=== PATIENT | male | born 1990 | race Caucasian/White ===

== ENCOUNTER 2020-01-10 00:34 | Inpatient (IN) ==
[2020-01-10 01:00] LABS: Bilirubin,Urine Negative (Negative); Blood,Urine Negative (Negative); Clarity,Urine Clear (Clear); Color,Urine Yellow (Yellow); Glucose,Urine (UA) Normal (Normal); Ketones,Urine Trace mg/dL (Negative); Leukocyte Esterase,Urine Negative (Negative); Nitrite,Urine Negative (Negative); PH,Urine 5.5 pH Units (5.0-8.0); Protein,Urine Negative (Neg-Trace); Specific Gravity,Urine > 1.030 (1.010-1.025); Urobilinogen,Urine Normal (Normal)
[2020-01-10 01:14] LABS: Amphetamine Screen,Urine Negative ng/mL (Cutoff=1000); Barbiturate Screen,Urine Negative ng/mL (Cutoff=200); Benzodiazepines Screen,Urine Negative ng/mL (Cutoff=200); Cannabinoid Screen,Urine Positive ng/mL (Cutoff = 50); Cocaine Screen,Urine Negative ng/mL (Cutoff= 300); Opiate Screen,Urine Negative ng/mL (Cutoff=300); Phencyclidine Screen,Urine Negative ng/mL (Cutoff=25)
[2020-01-10 01:32] LABS: Basophils % 0.3 %; Eosinophils # 0.1 K/mcL (0.0-0.6); Hematocrit 49.7 % (37.5-50.1); Hemoglobin 16.1 g/dL (12.9-16.9); Immature Granulocytes % 0.1 % (0-4); Lymphocytes # 6.2 K/mcL (0.6-4.6); Lymphocytes % 63.6 %; Mean Corpuscular HGB Conc 32.4 g/dL (31.6-35.5); Mean Corpuscular Hemoglobin 29.7 pg (28.0-33.3); Mean Corpuscular Volume 91.7 fL (83.0-100.0); Mean Platelet Volume 12.5 fL (9.4-12.4); Monocytes # 1.4 K/mcL (0.0-1.3); Monocytes % 14.4 %; Platelet Count 225 K/mcL (140-400); Red Blood Count 5.42 M/mcL (4.19-5.50); Red Cell Distribution Width 13.7 % (11.5-14.5); Segmented Neutrophils % 20.6 %; White Blood Count 9.7 K/mcL (4.3-11.1)
[2020-01-10 01:33] LABS: INR 2.5; Prothrombin Time 28.5 Seconds (9.4-12.1)
[2020-01-10] MEDS ORDERED: *HR* Warfarin 5 MG TABLET PO ONE (01:33)
[2020-01-10 01:36] LABS: Activated Partial Thrombo Time 57.2 Seconds (26.0-36.0)
[2020-01-10 01:37] LABS: Acetaminophen < 10 mcg/mL (10-20); BUN/Creatinine Ratio 12 (6-26); Blood Urea Nitrogen 12 mg/dL (6-20); Calcium 9.7 mg/dL (8.6-10.3); Carbon Dioxide 27 mEq/L (23-29); Chloride 101 mEq/L (98-107); Ethanol < 10 mg/dL (Less than 10); Glucose 104 mg/dL (70-105); Osmolality,Calculated 282 (280-300); Salicylate < 2.5 mg/dL (15.0-30.0); Sodium 136 mEq/L (136-145); eGFR For African Americans > 60 (> 60); eGFR For Non-African Americans > 60 (> 60)
[2020-01-10 01:53] LABS: Platelet Estimate Normal (Normal)
[2020-01-10] MEDS ORDERED: traZODone 50 MG TABLET PO PRN (03:19)
[2020-01-10] MEDS ORDERED: *HR* LORazepam 1 MG TABLET PO PRN (03:19)
[2020-01-10] MEDS ORDERED: Haloperidol Lactate 5 MG/ML VIAL IM PRN (03:19)
[2020-01-10] MEDS ORDERED: haloperidoL 5 MG TABLET PO PRN (03:19)
[2020-01-10] MEDS ORDERED: Mag Hydrox/Al Hydrox/Simeth 30 ML UDC PO PRN (03:19)
[2020-01-10] MEDS ORDERED: *HR* LORazepam 2 MG/ML VIAL IM PRN (03:19)
[2020-01-10] MEDS ORDERED: MOM Conc 10 ML UD.LIQ PO PRN (03:19)
[2020-01-10] MEDS: Acetaminophen 325 MG TABLET PO PRN (05:31)
[2020-01-10] MEDS: hydrOXYzine pamoate 25 MG CAPSULE PO PRN ×2 (05:32→21:46)
[2020-01-10] MEDS: Nicotine 2 MG GUM BC PRN ×3 (05:33→18:43)
[2020-01-10] MEDS: Cholecalciferol (D-3) 1,000 UNIT (25MCG) TABLET PO SCH (10:27)
[2020-01-10] MEDS: lisinopriL 5 MG TABLET PO SCH (11:30)
[2020-01-10] MEDS ORDERED: Aspirin 81 MG TAB.CHEW PO SCH (12:15)
[2020-01-10] MEDS: *HR* Warfarin 5 MG TABLET PO SCH ×2 (18:34→21:24)
[2020-01-10] MEDS ORDERED: mycophenolate mofetiL 250 MG CAPSULE PO SCH (21:00)
[2020-01-10] MEDS ORDERED: *HR* Warfarin 5 MG TABLET PO SCH (21:00)
[2020-01-10] MEDS: mycophenolate mofetiL 250 MG CAPSULE PO SCH (21:52)
[2020-01-11 09:29] VITALS: BP 139/88
[2020-01-11] MEDS: mycophenolate mofetiL 250 MG CAPSULE PO SCH (10:04)
[2020-01-11] MEDS: Cholecalciferol (D-3) 1,000 UNIT (25MCG) TABLET PO SCH (10:04)
[2020-01-11] MEDS: lisinopriL 5 MG TABLET PO SCH (10:05)
[2020-01-11] MEDS: Acetaminophen 325 MG TABLET PO PRN (11:36)
[2020-01-13] MEDS ORDERED: *HR* Warfarin 5 MG TABLET PO SCH ×2 (18:00→21:00)
== END 2020-01-11 14:45 | disposition home or self-care (01) | DRG 885 ==
LOC: EMEROOARM 00:34 → 1ANU 03:16
PROVIDERS: ADMIT Psychiatry & Neurology Psychiatry; ATTEND Psychiatry & Neurology Psychiatry

== ENCOUNTER 2021-11-07 19:36 | Observation (INO) ==
[2021-11-07] MEDS ORDERED: Isovue-370 500 ML BOTTLE IVP ONE (19:44)
[2021-11-07 20:18] LABS: Alanine Aminotransferase 25 Units/L (7-52); Albumin 4.8 g/dL (3.5-5.7); Albumin/Globulin Ratio 2.7 (1.1-2.2); Alkaline Phosphatase 45 Units/L (34-104); Aspartate Amino Transferase 27 Units/L (13-39); BUN/Creatinine Ratio 9 (6-26); Bilirubin,Direct 0.1 mg/dL (0.0-0.2); Bilirubin,Indirect 0.5 mg/dL (0.0-1.0); Bilirubin,Total 0.6 mg/dL (0.3-1.0); Blood Urea Nitrogen 11 mg/dL (6-20); Calcium 9.7 mg/dL (8.6-10.3); Carbon Dioxide 23 mEq/L (23-29); Chloride 99 mEq/L (98-107); Ethanol < 10 mg/dL (Less than 10); Globulin 1.8 g/dL (2.4-3.5); Glucose 108 mg/dL (70-105); Magnesium 1.9 mg/dL (1.6-2.6); Osmolality,Calculated 280 (280-300); Potassium 4.4 mEq/L (3.5-5.1); Sodium 135 mEq/L (136-145); Total Protein 6.6 g/dL (6.4-8.9); eGFR For African Americans > 60 (> 60); eGFR For Non-African Americans > 60 (> 60)
[2021-11-07 20:25] LABS: Basophils # 0.1 K/mcL (0.0-0.2); Basophils % 0.6 %; Eosinophils # 0.1 K/mcL (0.0-0.6); Eosinophils % 1.4 %; Hematocrit 45.6 % (37.5-50.1); Hemoglobin 15.1 g/dL (12.9-16.9); Immature Granulocytes % 0.5 % (0-4); Lymphocytes # 2.3 K/mcL (0.6-4.6); Lymphocytes % 23.5 %; Mean Corpuscular HGB Conc 33.1 g/dL (31.6-35.5); Mean Corpuscular Hemoglobin 29.3 pg (28.0-33.3); Mean Corpuscular Volume 88.4 fL (83.0-100.0); Mean Platelet Volume 11.9 fL (9.4-12.4); Monocytes # 1.1 K/mcL (0.0-1.3); Monocytes % 10.6 %; Neutrophils # 6.3 K/mcL (1.6-8.9); Platelet Count 243 K/mcL (140-400); Red Blood Count 5.16 M/mcL (4.19-5.50); Red Cell Distribution Width 12.9 % (11.5-14.5); Segmented Neutrophils % 63.4 %
[2021-11-07 20:27] LABS: Bacteria,Urine Few per hpf (None-Few); Bilirubin,Urine Negative (Negative); Blood,Urine Negative (Negative); Clarity,Urine Clear (Clear); Color,Urine Light-Yellow (Yellow); Glucose,Urine (UA) Normal (Normal); Hyaline Casts,Urine Many per lpf (None Seen); Ketones,Urine Negative (Negative); Leukocyte Esterase,Urine Negative (Negative); Mucus,Urine Few per lpf (None-Few); Nitrite,Urine Negative (Negative); PH,Urine 5.5 pH Units (5.0-8.0); Protein,Urine 50 mg/dL (Neg-Trace); RBC,Urine 0-3 per hpf (0-3); Specific Gravity,Urine 1.023 (1.010-1.025); Squamous Epithelial Cell,Urine Few per hpf (None-Few); Urobilinogen,Urine Normal (Normal)
[2021-11-07 20:32] LABS: Amphetamine Screen,Urine Negative ng/mL (Cutoff=1000); Barbiturate Screen,Urine Negative ng/mL (Cutoff=200); Benzodiazepines Screen,Urine Negative ng/mL (Cutoff=200); Cannabinoid Screen,Urine Positive ng/mL (Cutoff = 50); Cocaine Screen,Urine Negative ng/mL (Cutoff= 300); Opiate Screen,Urine Negative ng/mL (Cutoff=300); Phencyclidine Screen,Urine Negative ng/mL (Cutoff=25)
[2021-11-07 20:32] LABS: Prothrombin Time 33.3 Seconds (9.4-12.1)
[2021-11-08] MEDS ORDERED: Perflutren Lipid Microsphere 1.3 ML in 0.9 % Sodium Chloride 8.7 ML IVP PRN (01:34)
[2021-11-08] MEDS ORDERED: Naloxone 0.4 MG/ML INJ IVP PRN (02:30)
[2021-11-08] MEDS ORDERED: Acetaminophen 325 MG TABLET PO PRN (02:30)
[2021-11-08 04:02] LABS: Hematocrit 45.6 % (37.5-50.1); Hemoglobin 15.5 g/dL (12.9-16.9); Mean Corpuscular Hemoglobin 29.9 pg (28.0-33.3); Mean Corpuscular Volume 87.9 fL (83.0-100.0); Mean Platelet Volume 11.5 fL (9.4-12.4); Platelet Count 220 K/mcL (140-400); Red Blood Count 5.19 M/mcL (4.19-5.50); Red Cell Distribution Width 12.8 % (11.5-14.5); White Blood Count 12.8 K/mcL (4.3-11.1)
[2021-11-08 04:08] LABS: Estimated Average Glucose 97 mg/dl
[2021-11-08 04:12] LABS: INR 2.5; Prothrombin Time 27.9 Seconds (9.4-12.1)
[2021-11-08 04:20] LABS: BUN/Creatinine Ratio 10 (6-26); Blood Urea Nitrogen 8 mg/dL (6-20); Calcium 9.2 mg/dL (8.6-10.3); Carbon Dioxide 25 mEq/L (23-29); Chloride 103 mEq/L (98-107); Chol/HDL Ratio 3.2 (0-4.9); Cholesterol 167 mg/dL (< 200); Glucose 83 mg/dL (70-105); HDL Cholesterol 52 mg/dL (40-59); LDL Cholesterol,Calculated 98 mg/dL (< 100); Osmolality,Calculated 277 (280-300); Potassium 3.8 mEq/L (3.5-5.1); Sodium 135 mEq/L (136-145); Triglycerides 83 mg/dL (< 150); eGFR For African Americans > 60 (> 60); eGFR For Non-African Americans > 60 (> 60)
[2021-11-08] MEDS ORDERED: Aspirin 81 MG TAB.CHEW PO SCH (09:00)
[2021-11-08] MEDS ORDERED: BuPROPion XL (24 HR) 150 MG TABLET PO SCH (09:30)
[2021-11-08] MEDS ORDERED: Gabapentin 300 MG CAPSULE PO SCH (09:30)
[2021-11-08] MEDS ORDERED: mycophenolate mofetiL 250 MG CAPSULE PO SCH (09:30)
[2021-11-08 11:01] VITALS: BP 146/90; PULSE 64; TEMP 98.5; O2SAT 99
[2021-11-08] MEDS ORDERED: Warfarin perPT PO PRN (18:00)
[2021-11-08] MEDS ORDERED: *HR* Warfarin 10 MG TABLET PO ONE (18:00)
[2021-11-09] MEDS ORDERED: lisinopriL 5 MG TABLET PO SCH (09:00)
[2021-11-10 10:48] LABS: ANA IgG by ELISA DETECTED (None Detected)
== END 2021-11-08 15:03 | disposition home or self-care (01) ==
LOC: EMEROOARM 19:36 → 3BNU 19:36 → SUATTDRO 23:18 → 3BNU 11-08 00:22
PROVIDERS: ADMIT Student in an Organized Health Care Education/Training Program; ATTEND Internal Medicine